=== PATIENT | female | born 1995 | race Caucasian/White ===

== ENCOUNTER 2016-07-10 20:28 | Emergency (ER) | payer OTHER ==
[~2016-07-10] VITALS: Ht 152.4 cm; Wt 56.0 kg
[~2016-07-10 20:28] MED LIST: BCPILLS PO; SERT-234 PO; TRAZ100T29 PO
[2016-07-10 20:30] VITALS: TEMP 36.6; Ht 152.4 cm; Wt 56.0 kg
[2016-07-10] MEDS ORDERED: DEXAMETHASONE SOD INJ 4 MG/ML VIAL IM ONE (20:45)
[2016-07-10] MEDS ORDERED: DULO-24 PO (20:47)
[2016-07-10] MEDS ORDERED: [UNRECOGNIZED DRUG - OTHER] PO (20:47)
[2016-07-10] MEDS ORDERED: NALT50TA16 PO (20:47)
[2016-07-10] MEDS ORDERED: METH4PAK PO (21:02)
--- NOTE | 2016-07-10 21:03 | EMERGENCY ROOM VISIT NOTE ---
ED Visit Note First contact with patient: 20:34 CHIEF COMPLAINT: Rash HISTORY OF PRESENT ILLNESS: This 20-year-old female patient presents to the emergency department ambulatory complaining of a rash around her mouth which started when she woke up this morning. The patient states that the rash started suddenly when she woke up this morning. She denies any rash previous to today. She describes it as red bumps around the mouth and on the forehead and states it is painful. She rates the discomfort a 6/10. The patient denies fever, chills, nausea, or loss of appetite. They deny any URI symptoms. She has not taken any medications for relief of the rash. No change in food, soap, detergents, or other environmental factors. No new medications. No weakness or numbness. REVIEW OF SYSTEMS: A 6 system review of systems was completed with positives and pertinent negatives listed in the HPI. ALLERGIES: No known drug allergies MEDICATIONS: control pills, Cymbalta, naltrexone, trazodone PMH: No significant past medical history. SOCIAL HISTORY: The patient is a [employer] student and lives with roommates. PHYSICAL EXAM: Vital Signs: Reviewed Nurse's notes, vital signs stable. GENERAL : This is a 20-year-old female, in no acute distress, well-developed, well- nourished. SKIN: There are multiple erythematous raised papules surrounding the mouth and on the forehead. No evidence of excoriation. No bleeding or drainage. Capillary refill less than 2 seconds. EMERGENCY DEPARTMENT COURSE: The patient was evaluated as above. Her symptoms are most consistent with an allergic type rash. I'm unsure what caused the rash. I do believe he'll likely be responsive to steroids. I do not suspect impetigo or a bacterial infection. The patient was given 10 mg Decadron IM and will be placed on a Medrol Dosepak. She was instructed to follow-up with [facility] for further evaluation if the rash persists or worsens. She verbalized understanding of my assessment and treatment plan and was discharged home in good condition. DIAGNOSIS: Rash Current/Historical Medications Scheduled Control Pills ( Control Pills), 1 TAB PO DAILY Duloxetine HCl (Cymbalta), 40 MG PO DAILY Methylprednisolone (Medrol Dosepak), 0 PO DAILY Naltrexone HCl (Naltrexone HCl), 50 MG PO DAILY Trazodone Hcl (Trazodone), 100 MG PO HS [Praxin], 1 MG PO DAILY Allergies Coded Allergies: No Known Allergies (Unverified , 02/10/15) Vital Signs Date Time Temp Pulse Resp B/P Pulse Ox O2 Delivery O2 Flow Rate FiO2 07/10/16 21:11 63 16 112/75 99 Room Air 07/10/16 20:30 36.6 73 20 118/86 99 Room Air Medications Administered Medications (Trade) Dose Ordered Sig/Anupam Route Start Time Stop Time Status Last Admin Dose Admin Dexamethasone Sodium Phosphate (Decadron Inj) 10 mg NOW ONCE IM 07/10/16 20:45 07/10/16 20:46 DC 07/10/16 20:48 10 MG Departure Information Impression Primary Impression: Rash of face Dispostion Home / Self-Care Condition GOOD Prescriptions Methylprednisolone (MEDROL DOSEPAK) 4 Mg Gerardo 0 PO DAILY, #1 PKT Prov: Merari Bryant ., SCOTT 07/10/16 Referrals No Doctor, Assigned (PCP) Patient Instructions My [facility] Additional Instructions You have been prescribed a Medrol Dosepak. This is a steroid which will help decrease your inflammation, redness, and itch. Take the medicine as prescribed. Take the ENTIRE 6 day course of the steroids. You should take Benadryl (diphenhydramine) 25-50 mgs every 6 hours as needed for itching. Be aware that Benadryl can make you drowsy. If symptoms worsen or persist despite this treatment, follow-up with [facility] services for further evaluation.
[2016-07-10 21:11] VITALS: BP 112/75; PULSE 63; O2SAT 99
== END 2016-07-10 21:12 | disposition home or self-care (01) ==
LOC: C.EDB 20:29 → C.EDD 21:12
DX: R21 Rash and other nonspecific skin eruption (principal); Z79.3 Long term (current) use of hormonal contraceptives; Z79.899 Other long term (current) drug therapy

== ENCOUNTER 2024-05-12 23:28 | Inpatient (IN) ==
[2024-05-12] MEDS ORDERED: LIDOCAINE 1% LOCAL 20 ML VIAL INFIL PRN (23:54)
[2024-05-13 00:30] LABS: Hematocrit (blood only) 38.1 % (37.0-47.0); Hemoglobin 12.8 g/dl (12.0-16.0); Mean Corpuscular Hgb Conc 33.6 g/dL (32.0-36.0); Mean Corpuscular Volume 86.2 fL (80.0-100.0); Mean Platelet Volume 12.1 fL (9.4-12.4); Platelet Count 150 K/uL (130-400); RDW Coefficient of Variation 14.5 % (11.5-14.5); RDW Standard Deviation 45.5 fL (36.4-46.3); Red Blood Count 4.42 M/uL (4.20-5.40); White Blood Count 15.24 K/ul (4.8-10.8)
[2024-05-13] MEDS: SODIUM CHLORIDE 0.9% 1,000 ML IV SCH (00:34)
[2024-05-13] MEDS ORDERED: fentANYL 2 MCG/ML BUPIVacaine 0.125%-NSS 100ML BAG EPI PRN (00:53)
[2024-05-13] MEDS ORDERED: fentaNYL citrate PF 100 MCG/2 ML VIAL EPI STA (00:53)
[2024-05-13] MEDS ORDERED: BUPIVACAINE 0.25% PF 30 ML VIAL EPI STA (00:53)
[2024-05-13] MEDS ORDERED: NALOXONE HCL 1 MG in SODIUM CHLORIDE 0.9% 1,000 ML IV PRN (00:53)
[2024-05-13] MEDS ORDERED: LIDOCAINE 2%/EPINEPHRINE 1:200,000 20 ML PF EPI STA (00:53)
[2024-05-13] MEDS ORDERED: NALBUPHINE HCL INJ 10 MG/ML AMP IV PRN (00:53)
[2024-05-13] MEDS ORDERED: SODIUM CHLORIDE 0.9% PF INJ 10 ML VIAL EPI PRN (00:53)
[2024-05-13] MEDS ORDERED: LIDOCAINE 2% MPF LOCAL 5 ML VIAL EPI PRN (00:53)
[2024-05-13] MEDS ORDERED: SODIUM CHLORIDE 0.9% PF INJ 10 ML VIAL EPI STA (00:53)
[2024-05-13] MEDS ORDERED: ROPIVACAINE 0.5% PF 5 MG/ML 20 ML VIAL EPI PRN (00:53)
[2024-05-13] MEDS ORDERED: BUPIVACAINE 0.25% PF 30 ML VIAL EPI PRN (00:53)
[2024-05-13] MEDS ORDERED: fentaNYL citrate PF 100 MCG/2 ML VIAL EPI PRN (00:53)
[2024-05-13] MEDS ORDERED: ePHEDrine sulfate 50 MG/ML AMP IV PRN (00:53)
[2024-05-13] MEDS ORDERED: NALOXONE HCL 0.4 MG/1 ML VIAL/CARP IV PRN (00:53)
[2024-05-13] MEDS ORDERED: diphenhydrAMINE 50 MG/ML VIAL IV PRN (00:53)
--- NOTE | 2024-05-13 00:53 | Anesthesiology Consultation ---
Date of Service May 13, 2024 Assessment & Plan (1) Encounter for pre-operative examination: Chart Review Chart Review: Patient NOT seen in Pre Admission Testing and Acceptable Risk for Labor Epidural Consults Requested none History Height/Weight Height: 5 ft Weight: 83.461 kg Allergies Allergy/AdvReac Type Severity Reaction Status Date / Time mercury (elemental) Allergy Unknown Verified 05/12/24 23:43 nickel Allergy Anaphylaxis Verified 05/12/24 23:42 Medications Home Medications Medication Instructions Recorded Confirmed Last Taken vits [id number] fum 1 tab PO DAILY 05/12/24 05/12/24 05/12/24 27 mg iron-folic acid 800 mcg tablet ( Vitamin) Active Medications Generic Name Dose Route Start Last Admin Trade Name Freq PRN Reason Stop Dose Admin Sodium Chloride 1,000 mls @ 50 mls/hr 05/13/24 00:15 05/13/24 00:34 Nss IV 05/14/24 00:14 999 mls/hr .Q20H JESENIA Administration Past Medical History Medical History Varicella vaccine Rash of face Pneumonia Fibromyalgia Past Family History Family History Grandfather (Maternal) Myocardial infarction Denies family history of Ovarian cancer Prostate cancer Breast cancer Colorectal cancer Past Surgical History Surgical History H/O oral surgery Social History Smoking Status: Never smoker Do You Dip or Chew Tobacco: No Hx Alcohol Use: No Hx Substance Use: No substance use type: does not use Physical Exam Vital Signs Last Vital Signs Temp 97.9 F 05/12/24 23:43 Pulse 91 H 05/13/24 00:48 Resp 18 05/12/24 23:43 BP 118/80 05/12/24 23:40 Pulse Ox 99 05/13/24 00:48 Testing Laboratory Results 05/13/24 00:13
[2024-05-13] MEDS: fentaNYL citrate PF 100 MCG/2 ML VIAL ONE (01:10)
[2024-05-13] MEDS: BUPIVACAINE 0.25% PF 30 ML VIAL ONE (01:11)
[2024-05-13] MEDS: LIDOCAINE 2%/EPINEPHRINE 1:200,000 20 ML PF ONE (01:11)
[2024-05-13] MEDS: fentANYL 2 MCG/ML BUPIVacaine 0.125%-NSS 100ML BAG ONE (01:12)
[2024-05-13] MEDS: ePHEDrine sulfate 50 MG/ML AMP ONE (01:45)
[2024-05-13] MEDS: SODIUM CHLORIDE 0.9% PF INJ 10 ML VIAL ONE (01:45)
[2024-05-13] MEDS: OXYTOCIN 30 UNITS/NSS 30 UNITS/500 ML BAG IV PRN (07:43)
[2024-05-13] MEDS: METHYLERGONOVINE MALEATE 0.2 MG/ML AMP IM ONE (07:51)
[2024-05-13] MEDS ORDERED: DIPHTHER/TETAN/PERTUS Vaccine (Tdap, Adol/Adult) 0.5mL IM ONE (08:17)
[2024-05-13] MEDS ORDERED: HYDROCORTISONE ACETATE 25 MG SUPP PR PRN (08:17)
[2024-05-13] MEDS ORDERED: bisacodyL 10 MG SUPP PR PRN (08:17)
[2024-05-13] MEDS ORDERED: OXYTOCIN 30 UNITS/NSS 30 UNITS/500 ML BAG IV PRN ×2 (08:17→09:11)
[2024-05-13] MEDS: miSOPROStoL 200 MCG TAB PR ONE (08:32)
[2024-05-13] MEDS: miSOPROStoL 200 MCG TAB ONE (08:40)
--- NOTE | 2024-05-13 09:00 | Delivery Summary ---
Vaginal Delivery Summary Date of Service May 13, 2024 Vaginal Delivery Summary and 2nd Degree LAC Pre-operative Diagnosis: at 40 weeks active labor Post-operative Diagnosis: same Procedure: second degree and bilateral labial lacerations and repair qBL: 355cc Anesthesia: epidural Procedure: The patient presented to labor and delivery with srom and active labor. She got epidural and progressed spontaneously to c/c/+2. The patient pushed for about 15 minutes to deliver a viable male in jennifer position. The anterior shoulder was delivered immedately and the rest of the infant was then delivered without difficulty. The baby was vigorous. The nose and mouth were again bulb suctioned and the infant was placed in the maternal abdomen for drying and attention. Cord was clamped and cut at one minute of life. Cord blood and segment obtained. Placenta delivered spontaneous, intact with a three vessel cord. Cervix/sulci/rectum were intact. A second degree perineal laceration and bilateral labial lacs were repaired in the normal standard fashion. Hemostasis obtained with dilute pitocin and fundal massage. Apgars were 8/9. Mother and baby doing well at the end of the delivery. [facility] [place] Charge Delivery Type Details: and 2nd Degree LAC
[2024-05-13] MEDS ORDERED: SODIUM CHLORIDE 0.9% 1,000 ML IV SCH (09:15)
--- NOTE | 2024-05-13 10:12 | Anesthesia Procedure Note ---
Date of Service May 13, 2024 Anesthesia Post Epidural Note Vital Signs Vital Signs: Temp Pulse Resp BP Pulse Ox 36.9 C 96 H 20 115/65 97 05/13/24 07:01 05/13/24 09:58 05/13/24 07:01 05/13/24 09:58 05/13/24 07:53 Pain Intensity Bilateral Lower Abdomen: Pain Intensity: 0 Notes Mental Status: alert / awake / arousable Nausea / Vomiting: adequately controlled Pain: adequately controlled Airway Patency, RR, SpO2: stable & adequate BP & HR: stable & adequate Hydration State: stable & adequate Neuraxial Anesthesia: was administered and sensory block is resolving Anesthetic Complications: no major complications apparent and Pt Satisfied with anesthetic care Epidural: Removed without complications and With tip intact
[2024-05-13] MEDS: IBUPROFEN 600 MG TAB PO PRN (11:25)
[2024-05-13] MEDS: BENZOCAINE 20% SPRY 85 APPLN/85 GM CAN EXT PRN (11:27)
[2024-05-13] MEDS: DOCUSATE SODIUM 100 MG CAP PO SCH (21:19)
--- NOTE | 2024-05-14 07:58 | Obstetrical Progress Note ---
Date of Service May 14, 2024 Assessment & Plan (1) Vaginal delivery: Plan: Both mom and baby doing well. Discharge today as per protocol and Liliam is ready. She will go home after circumcision of baby. Admission and Anticipated Discharge Date Admission Date: May 12, 2024 Supervising Physician Co-Signing Physician Notes Resident Physician Supervision Note: I interviewed and examined the patient. Discussed with Dr. Sheldon and agree with findings and plan as documented in the note. Any exceptions or clarifications are listed here: Doing well today. she is anxious to be d/c. Meeting milestones. Instructions reviewed. f/u in 6 weeks. Documented By: Serena Jurado MD, FACOG Subjective 1st PPDfollowing VD years G P at 40+4 week POG. No active complains Both mom and baby doing well. Pain: Mild, intermittent Lochia: Moderate Diet: Regular Ob diet Gas: Not aware of passing, but no abdominal distension Peeing: Normal, no bladder distension Ambulation: Normally Review of Systems Review of Systems: No SOB, chest pain, leg pain No dizziness, headache, palpitation No Blurring of vision , fever Physical Exam Physical Exam: General: Alert and oriented. No acute distress. CVS: S1 S2+ No murmurs, regular rhythm. Respiratory: CTA bilaterally. No rhonchi, wheezes, or crackles. No increased work of breathing. Abdomen: Bowel sound +. Soft, nontender Uterus: Fundus firm and palpable few cm below the umbilicus. Lower extremities: No LE edema. No deep calf pain. Results & Data Vital Signs (Past 12 Hours) Vital Signs Temp Pulse Resp BP Pulse Ox O2 Del Method 05/14/24 05:00 36.7 C 92 H 16 101/66 97 Room Air 05/13/24 23:50 36.6 C 92 H 16 102/68 96 Room Air 05/13/24 21:30 36.8 C 98 H 18 110/72 99 Room Air Resident Activity Tracking Resident Involvement: Resident Care Provided Care Provided: OB Delivery
[2024-05-14] MEDS: PRENATAL VITAMIN 1 TAB PO SCH (08:15)
[2024-05-14] MEDS: ACETAMINOPHEN 325 MG TAB PO PRN (08:23)
--- NOTE | 2024-05-14 08:40 | Medical Student Progress Note ---
Date of Service May 14, 2024 Assessment & Plan (1) Vaginal delivery: Plan: The patient is a 28yo F G1PI who is day 1 after an uncomplicated spontaneous vaginal delivery at term. She is hemodynamically stable, ambulating without difficulty, and tolerating a regular diet. Uterus is firm, lochia is moderate and rubra, and perineal discomfort is well controlled. Mom and baby are doing well. Discharge as planned post-circumcision. Plan Admission and Anticipated Discharge Date Admission Date: May 12, 2024 Subjective Liliam is 28yo F day 1 s/p uncomplicated spontaneous vaginal delivery at 8am yesterday. No active concerns or questions. Both mom and baby are doing well. Pain: Mild, intermittent Lochia: Moderate, no clots, slow and red Diet: Regular Ob diet Gas: Has been having flatulence and had bowel movement Peeing: Voiding normally, no distention Blues: No depressed mood or fluctuation Ambulation: Normally Liliam endorses some swelling in her legs but otherwise does not report any chest pain, SOB, leg pain or redness, lightheadedness, breast pain/discharge, or headache. Physical Exam Constitutional: WD/WN, vitals as above Respiratory: normal respiratory effort, lungs clear to auscultation Cardiovascular: Rate/Rhythm: regular rate and regular rhythm Normal S1, S2. Mild swelling of lower extremities bilaterally. No rubs, murmurs, or gallops Gastrointestinal (Abdomen): Normal bowel sounds, soft, nontender Genitourinary: Fundus is firm and at a few cm below the level of the umbilicus Results & Data Vital Signs (Past 12 Hours) Vital Signs Temp Pulse Resp BP Pulse Ox O2 Del Method 05/14/24 05:00 36.7 C 92 H 16 101/66 97 Room Air 05/13/24 23:50 36.6 C 92 H 16 102/68 96 Room Air 05/13/24 21:30 36.8 C 98 H 18 110/72 99 Room Air Laboratory Results Labs 05/13/24 00:13 WBC 15.24 H RBC 4.42 Hgb 12.8 Hct 38.1 MCV 86.2 MCH 29.0 MCHC 33.6 RDW Std Deviation 45.5 RDW Coeff of Sherry 14.5 Plt Count 150 MPV 12.1 Treponema pallidum Ab Negative Blood Type B Negative Antibody Screen NEGATIVE Medications Administered Current Inpatient Medications Acetaminophen (Acetaminophen 325 Mg Tab) 650 mg PO Q6H PRN PRN Reason: Pain/CRUZ/Fever Stop: 06/12/24 08:16 Last Admin: 05/14/24 08:23 Dose: 650 mg Benzocaine (Benzocaine 20% [place] 85 Appln/85 Gm Can) 1 appln EXT PRN PRN PRN Reason: Perineal Discomfort Stop: 06/12/24 08:16 Last Admin: 05/13/24 11:27 Dose: 1 appln Bisacodyl (Bisacodyl 5 Mg Tabec) 5 mg PO 1999 [facility] Stop: 05/14/24 20:01 Bisacodyl (Bisacodyl 10 Mg Supp) 10 mg IN DAILY PRN PRN Reason: No BM on 2nd post- day Stop: 06/12/24 08:16 Docusate Sodium (Docusate Sodium 100 Mg Cap) 100 mg PO DAILY@08,21 [facility] Stop: 06/12/24 20:59 Last Admin: 05/14/24 08:15 Dose: 100 mg Hydrocortisone (Hydrocortisone Acetate 25 Mg Supp) 25 mg IN BID PRN PRN Reason: Hemorrhoidal Inflammation Stop: 06/12/24 08:16 Oxytocin (Pitocin 30 Units/Nss) 30 units in 500 mls @ 333.333 mls/hr IV .Q1H30M PRN; Protocol PRN Reason: Bleeding Control Stop: 06/12/24 08:16 Sodium Chloride (Nss) 1,000 mls @ 80 mls/hr IV .[id number] [facility] Stop: 05/14/24 09:14 Oxytocin (Pitocin 30 Units/Nss) 30 units in 500 mls @ 2 mls/hr IV .Q24H PRN; Protocol PRN Reason: Labor Induction/Augmentation Stop: 05/15/24 09:10 Ibuprofen (Ibuprofen 600 Mg Tab) 600 mg PO Q4H PRN PRN Reason: Pain/CRUZ/Cramping/Fever Stop: 06/12/24 08:16 Last Admin: 05/14/24 05:16 Dose: 600 mg Prenat Multivit/[place]/Iron/Folic Ac ( Vitamin 1 Tab) 1 tab PO DAILY@08 [facility] Stop: 06/13/24 07:59 Last Admin: 05/14/24 08:15 Dose: 1 tab
[2024-05-14 08:44] LABS: Hematocrit (blood only) 33.3 % (37.0-47.0); Hemoglobin 11.2 g/dl (12.0-16.0)
[2024-05-14 08:53] VITALS: RESP 18; TEMP 97.5
[2024-05-14 10:42] VITALS: O2SAT 98
[2024-05-14 11:48] VITALS: BP 105/70; PULSE 85
[2024-05-14] MEDS ORDERED: bisacodyL 5 MG TABEC PO SCH (20:00)
== END 2024-05-14 14:00 | disposition home or self-care (01) | DRG 807 ==
LOC: OPB 23:28 → 4S1 23:31 → 4E2 05-13 11:09